=== PATIENT | female | born 1965 | race Caucasian/White ===

== ENCOUNTER 2022-04-04 12:27 | Emergency (ER) | payer SELFPAY ==
--- OUTSIDE RECORDS SUMMARY | 2022-04-04 12:30 | XMS REPORT | Continuity of Care Document ---
:1965 Author Organization [facility] t Address [address] [place] [address] [address]. [address] [place] [address] Care Team Providers Name Role Phone Unavailable Unavailable Unavailable Problems This patient has no known problems. Allergies, Adverse Reactions, Alerts This patient has no known allergies or adverse reactions. Medications This patient has no known medications. Procedures This patient has no known procedures. Results Test Description Test Time Test Comments Results Result Comments Source HEMOGLOBIN A1c 2021-12-02 05:39:22 Test Item Value Reference Range Interpretation Comme nts HEMOGLOBIN A1c (test code = 7.3 % 4.2-5.6 H [employer] 27142) GUIDELINES FOR HGB A1C: PREDIABETES/INC REASED RISK . . . . . . . 5.7-6.4% DIAGNOSIS OF DIABETES . . . . . . . . . >=6.5% WITH CONFIRMATION OR APPROPRIATE SYMPTOMS NOTE: ASSAY MA Y BE AFFECTED BY HEMOGLOBINOPATH IES (SICKLE CELL ANEMIA, S-C DIS EASE, OTHERS) OR ARTIFICIALLY LO WERED BY DECREASED RED CELL SURVIV AL (HEMOLYTIC ANEMIAS, BLOOD LOSS, ETC.). CONSIDER ALTERNATE TESTI NG OR LABORATORY CONSULTATION. UNLESS OTHERWISE INDICATED, ALL TESTING PERFORMED ATCLINICAL PATH [facility] [address] [place] [address] LABORATORY DIRE CTOR: ALYSSIA BURLESON M.D. CLIA NUMBER [id number] CAP ACCREDITATION N O. [id number] LIPID [id number] 04:17:47 Test Item Value Reference Range Interpretation Comments CHOLESTEROL (test 165 MG/DL <200 code = 2210) TRIGLYCERIDES (test 125 MG/DL <150 code = 2232) HDL CHOLESTEROL (test 34 MG/DL >39 L code = 2220) CALC LDL CHOL (test 107 MG/DL <100 H NOTE: C ALCULATED LDL code = 2237) IS BASED ON DUGLAS-SNOWDEN METHOD WHICHINCLUDES ADJUSTABLE TRIGLYCERIDE:VL DL CHOLESTEROL RAT IO.THIS FACTOR VARIES B Y MEASURED TRIGLY CERIDE AND NON-HDLCHOL ESTEROL CONCENTRATIONS WITH INCREASED CALCU LATED LDL SEENIN HIGH ER TRIGLYCERIDE OR LOWER NON-HDL SPECIME NS. FOR MOREINFORMATION , SEE CLIENT ANNOUNCE MENT AT [email or web address] RISK RATIO LDL/HDL 3.15 RATIO <3.22 (test code = 2238) COMPREHENSIVE METABOLIC [id number] 04:17:47 Test Item Value Reference Range Interpretation Comments GLUCOSE (test code = 154 MG/DL 70-99 H 2216) BUN (test code = 17 MG/DL 6-20 2207) CREATININE (test 0.66 MG/DL 0.60-1.30 code = 2214) eGFR (2020 CKD-EPI) 102 >60 (test code = 47085) ML/MIN/1.73 CALC BUN/CREAT (test 26 RATIO - code = 2235) SODIUM (test code = 142 MEQ/L 458-489 5082) POTASSIUM (test code 4.6 MEQ/L 3.5-5.4 = 2227) CHLORIDE (test code 106 MEQ/L 95-107 = 2215) CARBON DIOXIDE (test 23 MEQ/L 19-31 code = 2206) CALCIUM (test code = 9.5 MG/DL 8.5-10.5 2208) PROTEIN, TOTAL (test 7.2 G/DL 6.1-8.3 code = 2229) ALBUMIN (test code = 4.3 G/DL 3.5-5.2 2200) CALC GLOBULIN (test 2.9 G/DL 1.9-3.7 code = 2240) CALC A/G RATIO (test 1.5 RATIO 1.0-2.6 code = 2234) BILIRUBIN, TOTAL 0.5 MG/DL See_Comment [Automated message] (test code = 2207) The syste m which generated this result transmit cheryl reference range : <=1.2. The refe rence range was not u sed to interpret th is result as normal/abnormal . ALKALINE PHOSPHATASE 99 U/L 40-136 (test code = 2204) AST (test code = 19 U/L 9-40 2217) ALT (test code = 24 U/L 5-40 2218) CBC W/AUTO DIFF WITH [id number] 03:48:06 Test Item Value Reference Range Interpretation Comments WBC (test code = 6.4 K/UL 3.5-11.0 1001) RBC (test code = 5.15 M/UL 3.80-5.40 1002) HEMOGLOBIN (test code 14.7 G/DL 11.5-15.5 = 1003) HEMATOCRIT (test code 43.1 % 34.0-45.0 = 1004) MCV (test code = 83.7 fL 80.0-99.0 1005) MCH (test code = 28.5 PG 25.0-33.0 1006) MCHC (test code = 34.1 G/DL 31.0-36.0 1007) RDW (test code = 12.8 % 11.5-15.0 1038) NEUTROPHILS (test 45.3 % code = 1008) LYMPHOCYTES (test 42.1 % code = 1010) MONOCYTES (test code 8.2 % = 1011) EOSINOPHILS (test 2.7 % code = 1012) BASOPHILS (test code 0.6 % = 1013) IMMATURE GRANULOCYTES 1.1 % (test code = 1036) NUCLEATED RBCS (test 0.0 /100 See_Comment [Autom ated code = 1065) WBC'S message] The sy stem which generated this result transmitted reference range : 0.0. The refere nce range was not u sed to interpret th is result as normal/abnormal . PLATELET COUNT (test 249 K/UL 130-400 code = 1015) ABSOLUTE NEUTROPHILS 2.88 K/UL 1.50-7.50 (test code = 1066) ABSOLUTE LYMPHOCYTES 2.68 K/UL 1.00-4.00 (test code = 1067) ABSOLUTE MONOCYTES 0.52 K/UL 0.20-1.00 (test code = 1068) ABSOLUTE EOSINOPHILS 0.17 K/UL 0.00-0.50 (test code = 1040) ABSOLUTE BASOPHILS 0.04 K/UL 0.00-0.20 (test code = 1069) ABS IMMATURE 0.07 K/UL 0.00-0.10 GRANULOCYTES (test code = 1020) ABS NUCLEATED RBCS 0.00 K/UL 0.00-0.11 (test code = 68875)
[2022-04-04 13:55] LABS: Urine Blood Negative (Negative); Urine Glucose Negative (Negative); Urine Protein Negative (Negative); Urine Specific Gravity >=1.030 (1.005-1.030)
[2022-04-04 14:44] LABS: Absolute Lymphocytes (CBC) 2.4 K/uL (0.7-4.9); Hematocrit 42.6 % (36.0-45.0); Lymphocytes % 25.7 % (15.3-44.8); MPV 7.8 fL (7.6-11.3); RBC Red Blood Cell Count 5.12 M/uL (3.86-4.86)
[2022-04-04 14:49] LABS: Urine Bacteria <20 /HPF (<20); Urine RBC <5 /HPF (NONE SEEN)
[2022-04-04 14:58] LABS: Albumin 3.6 g/dL (3.4-5.0); Bilirubin Total 0.4 mg/dL (0.2-1.0); Potassium 4.4 mmol/L (3.5-5.1); Protein, Total 7.7 g/dL (6.4-8.2)
[2022-04-04] MEDS ORDERED: NA CHLORIDE 0.9% 1,000 ML ONE (15:02)
[2022-04-04] MEDS ORDERED: MORPHINE 4 MG/ML SYR ONE (15:02)
[2022-04-04] MEDS ORDERED: ONDANSETRON 4 MG/2 ML VIAL ONE (15:02)
--- NOTE | 2022-04-04 16:05 | RAD REPORT ---
EXAM DESCRIPTION: CTAbdomen Pelvis W Contrast - 04/04/2022 3:52 pm CLINICAL HISTORY: Abdominal pain. LLQ abdominal pain COMPARISON: No comparisons TECHNIQUE: Biphasic CT imaging of the abdomen and pelvis was performed with 100 ml non-ionic IV cont rast. All CT scans are performed using dose optimization technique as appropriate and may include automated exposure control or mA/KV adjustment according to patient size. FINDINGS: The lung bases are clear. The liver is diffusely fatty. Cholecystectomy clips. Spleen, pancreas, adrenal glands and kidneys are within normal limits. No bowel obstruction, free air, free fluid or abscess. Mild inflammation is seen around a section of the sigmoid colon in the upper pelvis compatible with mild acute diverticulitis. No peridiverticular abscess. Moderate retained stool throughout the colon. The appendix is normal. No evidence of signif icant lymphadenopathy. No suspicious bony findings. IMPRESSION: Mild acute sigmoid diverticulitis is present without abscess.
[2022-04-04] MEDS ORDERED: PROMETHAZINE INJ 25 MG/ML AMP ONE (16:30)
--- NOTE | 2022-04-04 16:45 | EDPHYS ---
Physician Documentation [facility] Name: Amelia Lemon Age: 56 yrs Sex: Female : 1965 Arrival Date: 04/04/2022 Time: 12:33 Bed 19 Private MD: ED Physician Jesu Moss HPI: 04/04 12:55 This 56 yrs old Female presents to ER via Ambulatory with complaints of Abdominal Pain,.jh7 12:55 The patient presents with abdominal pain in the lower abdomen. Onset: The jh7 symptoms/episode began/occurred 6 day(s) ago. Associated signs and symptoms: Pertinent positives: nausea, loose stool. Patient reports pain across the entire lower abdomen since Sunday, with fever and nausea. Reports that it feels like she is having a flareup of her diverticulitis. Reports loose stool but states that that is normal for her.. Historical: - Allergies: 12:49 No Known Allergies; ld1 - PMHx: 12:49 Diverticulitis; Hypercholesterolemia; Hypertensive disorder; Insomnia; ld1 - PSHx: 12:49 None; ld1 - Immunization history:: Adult Immunizations up to date, Client reports receiving the 2nd dose of the Covid vaccine. - Social history:: Smoking status: Patient denies any tobacco usage or history of. Patient/guardian denies using alcohol. ROS: 12:55 Eyes: Negative for injury, pain, redness, and discharge, ENT: Negative for injury, jh7 pain, and discharge, Neck: Negative for injury, pain, and swelling, Cardiovascular: Negative for chest pain, palpitations, and edema, Respiratory: Negative for shortness of breath, cough, wheezing, and pleuritic chest pain, Back: Negative for injury and pain, Skin: Negative for injury, rash, and discoloration, Neuro: Negative for headache, weakness, numbness, tingling, and seizure. 12:55 Constitutional: Positive for fever, Negative for weight loss. 12:55 Abdomen/GI: Positive for abdominal pain, nausea, Negative for vomiting, diarrhea, black/tarry stool, rectal pain. 12:55 All other systems are negative. Exam: 12:55 Constitutional: This is a well developed, well nourished patient who is awake, alert, jh7 and in no acute distress. ENT: Nares patent. No nasal discharge, no septal abnormalities noted. Oropharynx with no redness, swelling, or masses, exudates, or evidence of obstruction, uvula midline. Mucous membranes moist. Cardiovascular: Regular rate and rhythm with a normal S1 and S2. No gallops, murmurs, or rubs. Normal PMI, no JVD. No pulse deficits. Respiratory: Lungs have equal breath sounds bilaterally, clear to auscultation and percussion. No rales, rhonchi or wheezes noted. No increased work of breathing, no retractions or nasal flaring. Back: No spinal tenderness. No costovertebral tenderness. Full range of motion. Skin: Warm, dry with normal turgor. Normal color with no rashes, no lesions, and no evidence of cellulitis. Neuro: Awake and alert, GCS 15, oriented to person, place, time, and situation. Sensory grossly intact. Normal gait. 12:55 Abdomen/GI: Inspection: abdomen appears normal, Bowel sounds: normal, Palpation: mild abdominal tenderness, in the suprapubic area, right lower quadrant and left lower quadrant. Vital Signs: 12:48 BP 163 / 77; Pulse 73; Resp 18; Temp 98.3(O); Pulse Ox 99% on R/A; Weight 108.86 kg; ld1 Height 5 ft. 2 in. (157.48 cm); Pain 9/10; 16:00 BP 148 / 83; Pulse 77; Resp 16; Pulse Ox 98% on R/A; vg1 12:48 Body Mass Index 43.90 (108.86 kg, 157.48 cm) ld1 MDM: 13:56 Patient medically screened. [facility] 17:00 Differential diagnosis: diverticulitis. Data reviewed: vital signs, nurses notes, lab [facility] test result(s), radiologic studies, CT scan. Data interpreted: Pulse oximetry: is 98 %. Interpretation: normal. Counseling: I had a detailed discussion with the patient and/or guardian regarding: the historical points, exam findings, and any diagnostic results supporting the discharge/admit diagnosis, the need for outpatient follow up, a preparer making department, to return to the emergency department if symptoms worsen or persist or if there are any questions or concerns that arise at home. Response to treatment: the patient's symptoms have mildly improved after treatment. Special discussion:. ED course: Reviewed the patient's lab work and imaging with the patient. Informed her that she had mild sigmoid diverticulitis. The patient stated that she did not want to be admitted, and did not have any pain after the pain medicine was administered. Stated that she would like some more nausea medicine, but that she would like to go home. Informed her that she would be prescribed antibiotics and medication for pain/nausea. Told her that if her symptoms worsened, she could return to the ER and would likely be admitted. The patient passed a p.o. challenge in the ER and was in no distress at discharge. She understood the plan of care.. 04/04 12:56 Order name: CBC with Diff; Complete Time: 14:59 [facility] 04/04 12:56 Order name: CMP; Complete Time: 15:03 [facility] 04/04 12:56 Order name: Lipase; Complete Time: 15:03 [facility] 04/04 12:56 Order name: Urine Microscopic Only; Complete Time: 14:59 [facility] 04/04 13:55 Order name: Urine Dipstick-Ancillary; Complete Time: 14:22 [facility] 04/04 12:56 Order name: CT Abd/Pelvis - IV Contrast Only; Complete Time: 16:14 [facility] 04/04 12:56 Order name: IV Saline Lock; Complete Time: 14:54 [facility] 04/04 12:56 Order name: Labs collected and sent; Complete Time: 14:54 [facility] 04/04 12:56 Order name: Urine Dipstick-Ancillary (obtain specimen); Complete Time: 14:54 [facility] 04/04 16:33 Order name: PO challenge; Complete Time: 16:59 [facility] Administered Medications: 15:15 Drug: NS 0.9% 1000 ml Route: IV; Rate: 1 bolus; Site: right antecubital; vg1 17:37 Follow up: IV Status: Completed infusion; IV Intake: 1000ml vg1 15:15 Drug: Zofran (Ondansetron) 4 mg Route: IVP; Site: right antecubital; vg1 16:20 Follow up: Response: No adverse reaction; No change in condition vg1 15:17 Drug: morphine 4 mg Route: IVP; Infused Over: 4 mins; Site: right antecubital; vg1 16:28 Follow up: Response: No adverse reaction; No change in condition; RASS: Restless (+1) vg1 16:24 Drug: Phenergan (promethazine) 12.5 mg Route: IVP; Site: right antecubital; vg1 16:59 Follow up: Response: No adverse reaction; Marked relief of symptoms; Nausea is decreasedvg1 Disposition: 22:10 Co-signature as Attending Physician, Jesu Moss DO I was immediately available on-site ms3 in the Emergency Department for consultation in the care of the patient. . Disposition Summary: 04/04/22 16:45 Discharge Ordered Location: Home [facility] Problem: new [facility] Symptoms: have improved [facility] Condition: Stable [facility] Diagnosis - Diverticulitis of large intestine without perforation or abscess without bleeding [facility] Followup: [facility] - With: Private Physician - When: 2 - 3 days - Reason: Recheck today's complaints Discharge Instructions: - Discharge Summary Sheet [facility] - High-Fiber Diet [facility] - Diverticulitis [facility] Forms: - Medication Reconciliation Form [facility] - Thank You Letter [facility] - Antibiotic Education [facility] Prescriptions: - ondansetron 4 mg Oral tablet,disintegrating - place 1 tablet by TRANSLINGUAL route 4 times per day As needed; 20 tablet; [facility] Refills: 0, Product Selection Permitted - Flagyl 500 mg Oral Tablet - take 1 tablet by ORAL route every 12 hours for 7 days; 14 tablet; Refills: 0, [facility] Product Selection Permitted - Cipro 500 mg Oral Tablet - take 1 tablet by ORAL route every 12 hours for 7 days; 14 tablet; Refills: 0, [facility] Product Selection Permitted - dicyclomine 20 mg Oral Tablet - take 1 tablet by ORAL route 3 times per day As needed; 21 tablet; Refills: 0, [facility] Product Selection Permitted Signatures: Dispatcher [employer] Chanell Villagran, RN RN vg1 Jesu Moss DO DO ms3 Miriam Blackburn RN RN ld1 Aysha Hernandez FNP [employer] [facility]
--- NOTE | 2022-04-04 16:45 | ER ---
Nurse's Notes [facility] Name: Amelia Lemon Age: 56 yrs Sex: Female : 1965 Arrival Date: 04/04/2022 Time: 12:33 Bed 19 Private MD: Diagnosis: Diverticulitis of large intestine without perforation or abscess without bleeding Presentation: 04/04 12:48 Chief complaint: Patient states: ABD pain since last Sunday - nausea. Pt thinks it ld1 is a diverticulitis flare up. Coronavirus screen: At this time, the client does not indicate any symptoms associated with coronavirus-19. Ebola Screen: No symptoms or risks identified at this time. Initial Sepsis Screen: Does the patient meet any 2 criteria? No. Patient's initial sepsis screen is negative. Does the patient have a suspected source of infection? No. Patient's initial sepsis screen is negative. Risk Assessment: Do you want to hurt yourself or someone else? Patient reports no desire to harm self or others. Onset of symptoms was April 04, 2022. 12:48 Method Of Arrival: Ambulatory ld1 12:48 Acuity: ALEX 3 ld1 Triage Assessment: 12:49 General: Appears in no apparent distress. uncomfortable, Behavior is calm, cooperative, ld1 appropriate for age. Pain: Complains of pain in abdomen Pain does not radiate. Pain currently is 9 out of 10 on a pain scale. EENT: No signs and/or symptoms were reported regarding the EENT system. Neuro: Vu Agitation-Sedation Scale (RASS): 0 - Alert and Calm Level of Consciousness is awake, alert, obeys commands, Oriented to person, place, time, situation. Cardiovascular: Capillary refill < 3 seconds Patient's skin is warm and dry. Respiratory: Airway is patent Respiratory effort is even, unlabored. GI: Abdomen is round non-distended, Reports lower abdominal pain, nausea. : No signs and/or symptoms were reported regarding the genitourinary system. Derm: No signs and/or symptoms reported regarding the dermatologic system. Musculoskeletal: No signs and/or symptoms reported regarding the musculoskeletal system. Historical: - Allergies: 12:49 No Known Allergies; ld1 - PMHx: 12:49 Diverticulitis; Hypercholesterolemia; Hypertensive disorder; Insomnia; ld1 - PSHx: 12:49 None; ld1 - Immunization history:: Adult Immunizations up to date, Client reports receiving the 2nd dose of the Covid vaccine. - Social history:: Smoking status: Patient denies any tobacco usage or history of. Patient/guardian denies using alcohol. Screenin:00 Abuse screen: Denies threats or abuse. Nutritional screening: No deficits noted. vg1 Tuberculosis screening: No symptoms or risk factors identified. Fall Risk No fall in past 12 months (0 pts). No secondary diagnosis (0 pts). IV access (20 points). Ambulatory Aid- None/Bed Rest/Nurse Assist (0 pts). Gait- Normal/Bed Rest/Wheelchair (0 pts) Mental Status- Oriented to own ability (0 pts). Total Marsh Fall Scale indicates No Risk (0-24 pts). Assessment: 15:00 General: Appears uncomfortable, Behavior is calm, cooperative. Pain: Complains of pain vg1 in groin Pain currently is 8 out of 10 on a pain scale. Neuro: Vu Agitation-Sedation Scale (RASS): +1 Restless Level of Consciousness is awake, alert, obeys commands, Oriented to person, place, time, situation. Cardiovascular: Patient's skin is warm and dry. Respiratory: Airway is patent Respiratory effort is even, unlabored. GI: Abdomen is round non-distended, Abdomen is tender to palpation in suprapubic area Reports nausea. : No signs and/or symptoms were reported regarding the genitourinary system. EENT: No signs and/or symptoms were reported regarding the EENT system. Derm: Skin is intact, is healthy with good turgor. Musculoskeletal: Circulation, motion, and sensation intact. 16:00 Reassessment: Patient appears in no apparent distress at this time. Patient and/or vg1 family updated on plan of care and expected duration. Pain level reassessed. Patient is alert, oriented x 3, equal unlabored respirations, skin warm/dry/pink. Pt states nausea; provider notified. 17:15 Reassessment: Patient appears in no apparent distress at this time. Patient and/or vg1 family updated on plan of care and expected duration. Pain level reassessed. Patient is alert, oriented x 3, equal unlabored respirations, skin warm/dry/pink. Patient states feeling better. Vital Signs: 12:48 BP 163 / 77; Pulse 73; Resp 18; Temp 98.3(O); Pulse Ox 99% on R/A; Weight 108.86 kg; ld1 Height 5 ft. 2 in. (157.48 cm); Pain 9/10; 16:00 BP 148 / 83; Pulse 77; Resp 16; Pulse Ox 98% on R/A; vg1 12:48 Body Mass Index 43.90 (108.86 kg, 157.48 cm) ld1 ED Course: 12:33 Patient arrived in ED. am2 12:42 Aysha Hernandez FNP is PHCP. jh7 12:42 Jesu Moss DO is Attending Physician. jh7 12:49 Triage completed. ld1 12:49 Arm band placed on right wrist. ld1 14:54 Chanell Lemon, RN is Primary Nurse. vg1 15:00 Patient has correct armband on for positive identification. Bed in low position. Call vg1 light in reach. Side rails up X2. 15:00 Inserted saline lock: 20 gauge in right antecubital area, using aseptic technique. vg1 ,using aseptic technique. completed by ED staff. 15:54 CT Abd/Pelvis - IV Contrast Only In Process Unspecified. EDMS 17:36 No provider procedures requiring assistance completed. IV discontinued, intact, vg1 bleeding controlled, No redness/swelling at site. Pressure dressing applied. Administered Medications: 15:15 Drug: NS 0.9% 1000 ml Route: IV; Rate: 1 bolus; Site: right antecubital; vg1 17:37 Follow up: IV Status: Completed infusion; IV Intake: 1000ml vg1 15:15 Drug: Zofran (Ondansetron) 4 mg Route: IVP; Site: right antecubital; vg1 16:20 Follow up: Response: No adverse reaction; No change in condition vg1 15:17 Drug: morphine 4 mg Route: IVP; Infused Over: 4 mins; Site: right antecubital; vg1 16:28 Follow up: Response: No adverse reaction; No change in condition; RASS: Restless (+1) vg1 16:24 Drug: Phenergan (promethazine) 12.5 mg Route: IVP; Site: right antecubital; vg1 16:59 Follow up: Response: No adverse reaction; Marked relief of symptoms; Nausea is decreasedvg1 Medication: 15:00 VIS not applicable for this client. vg1 Intake: 17:37 IV: 1000ml; Total: 1000ml. vg1 Outcome: 16:45 Discharge ordered by . jh7 17:36 Discharged to home via wheelchair, with family. vg1 17:36 Condition: good 17:36 Discharge instructions given to patient, Instructed on discharge instructions, follow up and referral plans. medication usage, Demonstrated understanding of instructions, follow-up care, medications, Prescriptions given X 4. 17:44 Patient left the ED. vg1 Signatures: Dispatcher [employer] EDCathryn Webber Victoria, RN RN vg1 Miriam Blackburn RN RN ld1 Aysha Hernandez, MIGUEL NAJERAP 7
[2022-04-04 17:58] VITALS: TEMP 98.3
[2022-04-04 17:59] VITALS: BP 148/83; O2SAT 98
== END 2022-04-04 17:44 | disposition home or self-care (01) ==
LOC: ER 12:27
DX: K57.32 Diverticulitis of large intestine without perforation or abscess without bleeding (principal); R11.0 Nausea; R50.9 Fever, unspecified; I10 Essential (primary) hypertension
CPT/HCPCS: 36415; 74177; 80053; 81003; 81015; 83690; 85025; 96361; 96374; 96375; 99284; J2405; J2550; J7030; Q9967